=== PATIENT | female | born 1965 | race Caucasian/White ===

== ENCOUNTER 2018-12-20 17:54 | Emergency (ER) | payer MEDICAID ==
[~2018-12-20] VITALS: Ht 152.4 cm; Wt 78.0 kg
[~2018-12-20 17:54] MED LIST: GLU500 PO
[2018-12-20 18:08] VITALS: Ht 152.4 cm; Wt 78.0 kg
[2018-12-20 20:30] LABS: BASOPHIL % 0.4 % (0-2); PLATELET COUNT 248 x10^3mcL (130-400); RED CELL DISTRIBUTION WIDTH 13.6 % (11.5-14.5)
[2018-12-20 20:38] LABS: CALCIUM 9.2 mg/dL (8.5-10.1); CARBON DIOXIDE 22.4 mmol/L (21-32); CHLORIDE SERUM 103 mmol/L (98-107); CREATININE SERUM 0.7 mg/dL (0.6-1.0); GFR1 > 60 mL/min; GLUCOSE SERUM 116 mg/dL (74-106); POTASSIUM SERUM 4.6 mmol/L (3.5-5.1); SODIUM SERUM 133 mmol/L (136-145)
[2018-12-20 20:42] LABS: ALBUMIN 3.7 g/dL (3.4-5.0); ALKALINE PHOSPHATASE 127 U/L (46-116); ALT/SGPT 23 U/L (14-59); AST/SGOT 11 U/L (15-37); BILIRUBIN TOTAL 0.68 mg/dL (0.20-1.00); TOTAL PROTEIN, SERUM 7.9 g/dL (6.4-8.2)
[2018-12-20 22:04] VITALS: BP 125/69
== END 2018-12-20 22:04 | disposition home or self-care (01) ==
LOC: ED 17:54
PROVIDERS: Emergency Medicine
DX: R00.2 Palpitations (principal); R42 Dizziness and giddiness; R51 Headache; F41.9 Anxiety disorder, unspecified; E11.9 Type 2 diabetes mellitus without complications
CPT/HCPCS: 36415; J1885

== ENCOUNTER 2020-04-12 10:06 | Emergency (ER) | payer MEDICAID ==
[~2020-04-12] VITALS: Ht 160 cm; Wt 78.0 kg
[2020-04-12 10:16] VITALS: Ht 160 cm; Wt 78.0 kg
[2020-04-12 11:13] LABS: BASOPHIL % 0.5 % (0-2); PLATELET COUNT 196 x10^3mcL (130-400); RED CELL DISTRIBUTION WIDTH 14.1 % (11.5-14.5)
[2020-04-12 11:22] LABS: CALCIUM 8.9 mg/dL (8.5-10.1); CHLORIDE SERUM 106 mmol/L (98-107); CREATININE SERUM 0.8 mg/dL (0.6-1.0); GFR1 > 60 mL/min; GLUCOSE SERUM 141 mg/dL (74-106); POTASSIUM SERUM 4.3 mmol/L (3.5-5.1); SODIUM SERUM 142 mmol/L (136-145)
[2020-04-12 11:27] LABS: ALKALINE PHOSPHATASE 125 U/L (46-116); ALT/SGPT 49 U/L (14-59); AST/SGOT 31 U/L (15-37); BILIRUBIN TOTAL 0.86 mg/dL (0.20-1.00); TOTAL PROTEIN, SERUM 6.9 g/dL (6.4-8.2)
[2020-04-12 14:18] VITALS: BP 165/82
== END 2020-04-12 14:18 | disposition home or self-care (01) ==
LOC: ED 10:06
PROVIDERS: Emergency Medicine
DX: I11.0 Hypertensive heart disease with heart failure (principal); F41.9 Anxiety disorder, unspecified

== ENCOUNTER 2020-08-07 16:32 | Emergency (ER) | payer MEDICAID ==
[~2020-08-07] VITALS: Ht 154.9 cm; Wt 76.4 kg
[2020-08-07 16:40] VITALS: Ht 154.9 cm; Wt 76.4 kg
[2020-08-07] MEDS ORDERED: NAPROXEN375 MG PO (17:58)
[2020-08-07] MEDS ORDERED: HYDROCHLOROTHIA50 MG PO (17:58)
[2020-08-07] MEDS ORDERED: ULTRAM50 MG PO (17:58)
[2020-08-07 18:37] VITALS: BP 153/70
== END 2020-08-07 18:37 | disposition home or self-care (01) ==
LOC: ED 16:32
DX: R51.9 Headache, unspecified (principal); M75.81 Other shoulder lesions, right shoulder; I10 Essential (primary) hypertension; E11.9 Type 2 diabetes mellitus without complications
CPT/HCPCS: J0780; J1885